=== PATIENT | female | born 1950 | race Caucasian/White ===

== ENCOUNTER → 2016-12-01 | Outpatient (CLI) | payer MEDICARE, OTHER ==
[~2016-12-01] MED LIST: METHACHOLINE KIT (J7674) INH ONE
== END ==
LOC: M CARPUL 07:17
PROVIDERS: ATTEND Internal Medicine Pulmonary Disease
DX: R06.02 Shortness of breath (principal)
CPT/HCPCS: 94070; 95070; J7674

== ENCOUNTER → 2017-08-11 | Outpatient (REF) | payer MEDICARE, OTHER | LOC: M LAB REF 16:41 | PROVIDERS: ATTEND Obstetrics & Gynecology | DX: N39.42 Incontinence without sensory awareness (principal) ==

== ENCOUNTER → 2017-08-30 | Outpatient (REF) | payer MEDICARE, OTHER ==
[2017-08-30 19:55] LABS: CALCIUM OXALATE CRYSTALS SMALL
== END ==
LOC: M LAB REF 16:39
PROVIDERS: ATTEND Obstetrics & Gynecology
DX: N39.0 Urinary tract infection, site not specified (principal)

== ENCOUNTER → 2017-11-29 | Outpatient (REF) | payer MEDICARE, OTHER ==
[2017-11-29 13:33] LABS: APPEARANCE, URINE HAZY (CLEAR); BACTERIA, URINE AUTO 2+ (NEGATIVE); BILIRUBIN, URINE AUTO NEGATIVE (NEGATIVE); BLOOD, URINE BLOOD 1+ (NEGATIVE); COLOR, URINE YELLOW (YELLOW); GLUCOSE, URINE (UA) AUTO NEGATIVE (NEGATIVE); KETONE, URINE AUTO NEGATIVE (NEGATIVE); LEUKOCYTE ESTERASE, URINE AUTO 2+ (NEGATIVE); MUCUS, URINE SMALL (NEGATIVE); NITRITE, URINE AUTO NEGATIVE (NEGATIVE); PROTEIN, URINE AUTO NEGATIVE (NEGATIVE); RBC, URINE AUTO 6 /HPF (0-3); SPECIFIC GRAVITY URINE AUTO 1.017 (1.002-1.035); SQUAMOUS EPITHELIAL CELL UR AU 0 /HPF (0-6); UROBILINOGEN, URINE AUTO 0.2 mg/dL (0.0-2.0); WBC, URINE AUTO 114 /HPF (0-3)
== END ==
LOC: M LAB REF 13:05
DX: N39.42 Incontinence without sensory awareness (principal)
CPT/HCPCS: 81001

== ENCOUNTER 2018-03-31 06:18 | Day surgery (SDC) | payer MEDICARE, OTHER ==
[~2018-03-31 06:18] MED LIST changes: -METHACHOLINE KIT (J7674) INH ONE; +SLF 3 ML SYR IV
[2018-03-31] MEDS: PROPARACAINE 0.5% OPHTH SOL 15ML OD (07:00)
[2018-03-31] MEDS: PHENYLEPHRINE 2.5% OPHTH SOL 2ML OD (07:10)
[2018-03-31] MEDS: TROPICAMIDE 1% OPHTH SOLN 2ML OD (07:15)
[2018-03-31] MEDS: OFLOXACIN 0.3 % (OCUFLOX) OPTH SOL 5ML OD (07:20)
[2018-03-31] MEDS: POVIDONE-IODINE 5% OPHTH PREP SOL 30ML As Ordered (07:54)
[2018-03-31] MEDS: BALANCED SALT IRRIGATION SOLUTION 500ML BAG (FOR OR EYE MACHINE) As Ordered (07:58)
[2018-03-31] MEDS: LIDOCAINE 0.75%/EPINEPHRINE 0.025% IN BSS 1ML SYR INTRACAMERAL (OR ONLY) As Ordered (07:58)
[2018-03-31] MEDS: CEFUROXIME 1MG/0.1ML INTRACAMERAL INJ As Ordered (07:58)
[2018-03-31] MEDS: DUOVISC (0.50ML VISCOAT/0.55ML PROVISC) OPHTH KIT As Ordered (07:58)
[2018-03-31] MEDS ORDERED: fentaNYL 100 MCG/2 ML INJECTION (J3010) As Ordered (08:15)
[2018-03-31] MEDS ORDERED: MIDAZOLAM INJ 2 MG/2 ML VIAL (J2250) As Ordered (08:15)
[2018-03-31] MEDS ORDERED: ONDANSETRON 4MG/2ML VIAL (J2405) As Ordered (09:15)
[2018-03-31] MEDS: ONDANSETRON 4MG/2ML VIAL (J2405) IV (09:25)
== END 2018-03-31 09:50 | disposition home or self-care (01) ==
LOC: M SDC 06:18
DX: H25.11 Age-related nuclear cataract, right eye (principal); I10 Essential (primary) hypertension; R06.02 Shortness of breath; M12.9 Arthropathy, unspecified; J45.909 Unspecified asthma, uncomplicated; C78.01 Secondary malignant neoplasm of right lung; C54.1 Malignant neoplasm of endometrium; Z79.899 Other long term (current) drug therapy; Z79.82 Long term (current) use of aspirin; Z90.710 Acquired absence of both cervix and uterus; Z98.51 Tubal ligation status; Z90.2 Acquired absence of lung [part of]
CPT/HCPCS: 66984

== ENCOUNTER 2018-04-14 05:58 | Day surgery (SDC) | payer MEDICARE, OTHER ==
[2018-04-14] MEDS ORDERED: SLF 3 ML SYR IV ×2 (06:00)
[2018-04-14] MEDS: CEFUROXIME 1MG/0.1ML INTRACAMERAL INJ As Ordered (06:37)
[2018-04-14] MEDS: PROPARACAINE 0.5% OPHTH SOL 15ML OS (06:45)
[2018-04-14] MEDS: OFLOXACIN 0.3 % (OCUFLOX) OPTH SOL 5ML OS (06:45)
[2018-04-14] MEDS: TROPICAMIDE 1% OPHTH SOLN 2ML OS (06:46)
[2018-04-14] MEDS: PHENYLEPHRINE 2.5% OPHTH SOL 2ML OS (06:47)
[2018-04-14] MEDS ORDERED: MIDAZOLAM INJ 2 MG/2 ML VIAL (J2250) As Ordered (06:54)
[2018-04-14] MEDS ORDERED: fentaNYL 100 MCG/2 ML INJECTION (J3010) As Ordered (06:54)
[2018-04-14] MEDS: TETRACAINE 0.5% OPHTH SOLN 4ML As Ordered (07:28)
[2018-04-14] MEDS: POVIDONE-IODINE 5% OPHTH PREP SOL 30ML As Ordered (07:28)
[2018-04-14] MEDS: BALANCED SALT IRRIGATION SOLUTION 500ML BAG (FOR OR EYE MACHINE) As Ordered (07:32)
[2018-04-14] MEDS: LIDOCAINE 0.75%/EPINEPHRINE 0.025% IN BSS 1ML SYR INTRACAMERAL (OR ONLY) As Ordered (07:33)
[2018-04-14] MEDS: DUOVISC (0.50ML VISCOAT/0.55ML PROVISC) OPHTH KIT As Ordered (07:33)
[2018-04-14] MEDS ORDERED: ONDANSETRON 4MG/2ML VIAL (J2405) As Ordered (07:34)
[2018-04-14] MEDS: ACETYLCHOLINE OPHTH SOLN 1% 2ML (MIOCHOL-E) As Ordered (07:45)
== END 2018-04-14 08:31 | disposition home or self-care (01) ==
LOC: M SDC 05:58
DX: H25.12 Age-related nuclear cataract, left eye (principal); I10 Essential (primary) hypertension; R06.02 Shortness of breath; M12.9 Arthropathy, unspecified; Z79.899 Other long term (current) drug therapy; Z79.82 Long term (current) use of aspirin; Z90.710 Acquired absence of both cervix and uterus; Z85.44 Personal history of malignant neoplasm of other female genital organs; Z85.118 Personal history of other malignant neoplasm of bronchus and lung; Z98.51 Tubal ligation status
CPT/HCPCS: 66984

== ENCOUNTER 2019-08-13 02:13 | Inpatient (IN) | payer MEDICARE, OTHER ==
[~2019-08-13] VITALS: Ht 157.5 cm; Wt 86.9 kg
[~2019-08-13 02:13] MED LIST changes: +AROMASIN; +ASPI81TA26 PO; +ATEN50TA2 PO; +BREO1INH3 INH; +CALC500T49 PO; +ENAL20TA PO; +HYDR25TAB PO; +LORA-243 PO; +MEGA625S PO; +MULT1TAB10 PO; -SLF 3 ML SYR IV; +VENTAER INH
[2019-08-13] MEDS ORDERED: PERCOCET 5MG/325MG TAB PO PRN (02:30)
[2019-08-13] MEDS ORDERED: ACETAMINOPHEN TAB 650MG DOSE (2X325MG) PO PRN (02:30)
[2019-08-13] MEDS ORDERED: VITMTA PO (02:59)
[2019-08-13] MEDS ORDERED: MEGE40TA PO (02:59)
[2019-08-13] MEDS ORDERED: AROM25TA PO (02:59)
[2019-08-13] MEDS ORDERED: OYST1TAB PO (02:59)
[2019-08-13] MEDS ORDERED: POTA8CAP10 PO (02:59)
[2019-08-13 07:52] LABS: HEMATOCRIT 39.4 % (36.0-47.0); MEAN CORPUSCULAR HEMOGLOBIN 30.4 pg (27.0-33.0); MEAN CORPUSCULAR VOLUME 92.1 fl (80.0-96.0); PLATELET COUNT, AUTOMATED 219 10^3/uL (150-450); RED BLOOD COUNT 4.28 10^6/uL (4.00-5.40); WHITE BLOOD COUNT 9.8 10^3/uL (4.0-10.0)
[2019-08-13 08:23] LABS: CALCIUM LEVEL 10.1 MG/DL (8.8-10.2); CREATININE FOR GFR 0.99 MG/DL (0.55-1.30); GLOMERULAR FILTRATION RATE 58.9 (>39); POTASSIUM SERUM 3.7 MEQ/L (3.5-5.1)
[2019-08-13] MEDS ORDERED: CEFT1INJ5 IV (08:24)
[2019-08-13] MEDS ORDERED: POTA1TAB14 PO (08:24)
[2019-08-13] MEDS ORDERED: [UNRECOGNIZED DRUG - CODE] IV (08:24)
[2019-08-13] MEDS ORDERED: MORP1INJ IV (08:24)
[2019-08-13] MEDS ORDERED: CEFTINJ IV (08:24)
[2019-08-13] MEDS ORDERED: [UNRECOGNIZED DRUG - CODE] IV (08:28)
[2019-08-13] MEDS: TAMSULOSIN 0.4 MG CAP PO SCH (09:51)
[2019-08-13] MEDS ORDERED: MORPHINE 4 MG/ML 1ML VIAL/SYRINGE (J2270) IV PRN (10:45)
[2019-08-13] MEDS ORDERED: KETOROLAC 30 MG/ML VIAL (J1885) IV PRN (10:45)
--- NOTE | 2019-08-13 11:53 | HPEPDOC ---
[facility] Medical History & Physical Date of Admission Aug 13, 2019 Date of Service: Aug 13, 2019 Attending Physician: RASHAAD BATES MD History and Physical CHIEF COMPLAINT: Right Flank pain HISTORY OF PRESENT ILLNESS: 69-year-old female with past medical history of asthma, uterine cancer with lung metastases, COPD, hypertension, is transferred to [facility] for renal calculi. Patient reports right flank pain since , radiating down to her groin area, with associated pain and burning with urination; she denies any fever. She has had multiple renal calculi in the past, reports are calcium stones, unsure of etiology; she has never been evaluated by nephrology. Upon reviewing records from the other facility. Patient has a 4.5 mm calculi in the right distal ureter, with mild hydroureter. She reports pain is much better controlled after receiving morphine overnight, curre ntly resting comfortable with mild pain intermittently. She denies any shortness of breath, chest pain, cough, nausea, vomiting, abdominal pain or diarrhea. 10 point review of system was negative except for above PAST MEDICAL HISTORY: 1. Asthma/COPD. 2. Hypertension. 3., Uterine cancer with lung metastases. PAST SURGICAL HISTORY: 1. Hysterectomy. 2. Right upper lobectomy. 3., Appendectomy. SOCIAL HISTORY: Never smoker. Denies alcohol use. Denies drug use FAMILY HISTORY: Strong family history of heart disease ALLERGIES: Please see below. HOME MEDICATIONS: Please see below. PHYSICAL EXAMINATION: VITAL SIGNS: Please see below. GENERAL: No distress HEENT: Normocephalic, atraumatic, moist mucous membranes NECK: Supple CARDIOVASCULAR EXAMINATION: S1, S2, no murmurs RESPIRATORY EXAMINATION: Clear to auscultation, no wheezing ABDOMINAL EXAMINATION: Soft, mild suprapubic tenderness, nondistended, positive bowel sounds EXTREMITIES: Range of motion intact SKIN: No rash NEUROLOGICAL EXAMINATION: Alert and oriented 3, no focal deficits PSYCHIATRIC EXAMINATION: Calm and cooperative LABORATORY DATA: See below. IMAGING: CT from the facility reviewed, 4.5 mm stone in the right distal ureter, mild hydroureter. MICROBIOLOGY: Please see below. ASSESSMENT: 69-year-old female with past medical history of uterine cancer with lung metastases, asthma, hypertension, admitted for right distal ureter calculi with mild hydroureter.. . PLAN: 1. Renal calculi. 4.5 mm, right distal ureter, mild hydroureter, history of recurrent renal calculi IV fluids, pain control with NSAIDs/opioids, Flomax, strain the urine for stone. Given the size of the stone unlikely to require active stone retrieval, will monitor for now, no need for urology evaluation at this time, will consider if needed in the future. 2. UTI. UA positive and symptoms concerning for UTI. Ceftriaxone 1 g daily. Urine cultures pending. Blood cultures pending. 3. Hypertension. Continue home atenolol and enalapril. 4. Asthma/COPD Continue home Breo Ellipta 5. Uterine cancer. Continue home Aromasin DVT prophylaxis: Heparin subcutaneous GI prophylaxis: Not needed Laboratory Data Labs 24H Laboratory Tests 2 08/13/19 07:35: Nucleated Red Blood Cells % (auto) 0.0, Anion Gap 6L, Glomerular Filtration Rate 58.9, Uric Acid 4.0, Calcium Level 10.1 08/13/19 11:32: Whole Blood Ionized Calcium 5.2 CBC/BMP Laboratory Tests 08/13/19 07:35 Home Medications Scheduled Albuterol Sulfate (Ventolin Hfa) 108 Mcg/Act Aer, 108 MCG INH PRN Atenolol (Atenolol) 50 Mg Tab, 50 MG PO BID Ceftriaxone in Is-Osm Dextrose (Ceftriaxone 1 gm Piggyback) 1 Gm/50 Ml Froz.piggy, 1 GM IV DAILY GIVE AT [place] Enalapril Maleate (Enalapril Maleate) 20 Mg Tab, 20 MG PO DAILY Exemestane (Aromasin) 25 Mg Tablet, 25 MG PO DAILY Fluticasone/Vilanterol (Breo Ellipta 200-25 Mcg INH) 1 Inh Inh, 1 PUFF INH DAILY Loratadine (Loratadine) 10 Mg Tab, 10 MG PO DAILY Megestrol Acetate (Megestrol Acetate) 40 Mg Tablet, 80 MG PO DAILY Multivitamins (Thera M Plus Tablet) 1 Each Tablet, 1 TAB PO DAILY Potassium Chloride (Potassium Chloride) 8 Meq Capsule.er, 8 MEQ PO BID Potassium Chloride (Potassium Chloride) 20 Meq Tablet.er, 40 MEQ PO DAILY GIVEN AT [place] Sodium Chloride (Sodium Chloride) 500 Ml Iv.soln, 0.9 % IV DAILY BOLUS. GIVEN AT [place] Scheduled PRN Morphine Sulfate/0.9% NaCl/Pf (Morphine 4 mg/ml-0.9% NaCl Syr) 4 Mg/1 Ml Syringe, 1 INJ IV DAILY [facility] ORDER Allergies Coded Allergies: No Known Allergies (Verified , 03/17/18) A-FIB/CHADSVASC A-FIB History Current/History of A-Fib/PAF?: No RASHAAD BATES MD Aug 13, 2019 11:53
[2019-08-13] MEDS ORDERED: cefTRIAXone SOD 1 GM in D5W MINI-BAG PLUS 50 ML IV SCH (12:00)
[2019-08-13] MEDS: NS 1,000 ML IV SCH ×2 (12:08→21:03)
[2019-08-13] MEDS: MULTIVITAMINS/MINERALS THERAP 1 TAB PO SCH (12:15)
[2019-08-13] MEDS: LORATADINE 10 MG TAB PO SCH (12:15)
[2019-08-13] MEDS: ENALAPRIL MALEATE 10 MG TAB PO SCH (12:15)
[2019-08-13 12:24] VITALS: BP 165/80
[2019-08-13 14:00] VITALS: BP 172/64
[2019-08-13] MEDS: MEGESTROL 40 MG TAB PO SCH (14:15)
[2019-08-13] MEDS: HEPARIN SOD (PORCINE) 5000 UNITS/ML VIAL SC SCH ×2 (14:15→21:03)
[2019-08-13] MEDS: ATENOLOL 50 MG TAB PO SCH (21:03)
[2019-08-13 22:00] VITALS: BP 160/67
[2019-08-14] MEDS: HEPARIN SOD (PORCINE) 5000 UNITS/ML VIAL SC SCH (05:45)
[2019-08-14] MEDS: NS 1,000 ML IV SCH (05:46)
[2019-08-14 05:58] LABS: HEMATOCRIT 35.2 % (36.0-47.0); HEMOGLOBIN 11.8 g/dl (12.0-15.5); MEAN CORPUSCULAR HEMOGLOBIN 31.4 pg (27.0-33.0); MEAN CORPUSCULAR HGB CONC 33.5 g/dl (32.0-36.5); MEAN CORPUSCULAR VOLUME 93.6 fl (80.0-96.0); PLATELET COUNT, AUTOMATED 206 10^3/uL (150-450); RED BLOOD COUNT 3.76 10^6/uL (4.00-5.40); WHITE BLOOD COUNT 5.5 10^3/uL (4.0-10.0)
[2019-08-14 06:00] VITALS: BP 144/84
[2019-08-14 06:24] LABS: ALBUMIN 2.4 GM/DL (3.2-5.2); ALT/SGPT 28 U/L (12-78); BILIRUBIN,TOTAL 0.5 MG/DL (0.2-1.0); BLOOD UREA NITROGEN 16 MG/DL (7-18); CALCIUM LEVEL 9.7 MG/DL (8.8-10.2); CARBON DIOXIDE LEVEL 24 MEQ/L (21-32); CHLORIDE LEVEL 115 MEQ/L (98-107); CREATININE FOR GFR 0.82 MG/DL (0.55-1.30); GLOMERULAR FILTRATION RATE > 60.0 (>39); GLUCOSE, FASTING 91 MG/DL (70-100); MAGNESIUM LEVEL 1.7 MG/DL (1.8-2.4); POTASSIUM SERUM 3.4 MEQ/L (3.5-5.1); SODIUM LEVEL 144 MEQ/L (136-145); TOTAL PROTEIN 5.9 GM/DL (6.4-8.2)
[2019-08-14] MEDS ORDERED: MAGNESIUM OXIDE 400 MG TAB (MAG-OX) PO ONE (08:30)
[2019-08-14] MEDS ORDERED: POTASSIUM CHLORIDE 10 MEQ SR TABLET PO ONE (08:30)
[2019-08-14] MEDS: MEGESTROL 40 MG TAB PO SCH (08:46)
[2019-08-14] MEDS: MULTIVITAMINS/MINERALS THERAP 1 TAB PO SCH (08:46)
[2019-08-14] MEDS: ATENOLOL 50 MG TAB PO SCH (08:48)
[2019-08-14 08:49] VITALS: BP 139/65
[2019-08-14] MEDS: TAMSULOSIN 0.4 MG CAP PO SCH (08:49)
[2019-08-14] MEDS: ENALAPRIL MALEATE 10 MG TAB PO SCH (08:49)
[2019-08-14] MEDS: LORATADINE 10 MG TAB PO SCH (08:49)
[2019-08-14] MEDS ORDERED: FLUBLOK(EGG FREE)(QUAD)INFLUENZA VACC 0.5ML SYRINGE (90682)18YRS&OLDER IM ONE (09:00)
[2019-08-14] MEDS ORDERED: BREO ELLIPTA 200/25 (PATIENT'S OWN MED) INH SCH (09:00)
[2019-08-14] MEDS ORDERED: CIPR-250 PO (10:46)
--- NOTE | 2019-08-14 10:51 | DS.PDOC ---
Discharge Summary General Date of Admission Aug 13, 2019 at 02:22 Date of Discharge Over 2018 Attending Physician: RASHAAD BATES MD Discharge Summary PROCEDURES PERFORMED DURING STAY: None. ADMITTING DIAGNOSES: 1. Renal calculi, UTI. DISCHARGE DIAGNOSES: 1. Renal calculi, UTI. COMPLICATIONS/CHIEF COMPLAINT: UTI. HISTORY OF PRESENT ILLNESS: 69-year-old female resented from [place] renal calculi and UTI, records from the other facility indicating a 4.5 mm stone in the right distal ureter and urine cultures growing sensitive Klebsiella. Patient has been doing well since admission, not requiring any pain control for the past 24 hours, currently resting in bed without any complaints at this time, mild tenderness to palpation of right flank, tolerating diet, urinating well, have been straining her urine for stone but no stone has been found so far. Patient is hemodynamically stable for discharge, can be safely discharged, given the size of stones and patient's complete lack of symptoms at this time. Patient advised to call PCP or return to emergency room if develops fever, worsening flank pain, vomiting or diarrhea along with urinary symptoms/abdominal pain. Patient will be discharged on ciprofloxacin for 5 days for her UTI; patient understands and agrees with discharge planning. HOSPITAL COURSE: As above. DISCHARGE MEDICATIONS: Please see below. ALLERGIES: Please see below. PHYSICAL EXAMINATION: VITAL SIGNS: Please see below. GENERAL: No distress HEENT: Normocephalic, atraumatic, moist mucous membranes NECK: Supple CARDIOVASCULAR EXAMINATION: S1, S2, no murmurs RESPIRATORY EXAMINATION: Clear to auscultation, no wheezing ABDOMINAL EXAMINATION: Soft, mild right flank tenderness to palpation, nondistended, positive bowel sounds EXTREMITIES: Range of motion intact SKIN: No rash NEUROLOGICAL EXAMINATION: Alert and oriented 3, no focal deficits PSYCHIATRIC EXAMINATION: Calm and cooperative LABORATORY DATA: Please see below. IMAGING: CT scan showing 4.5 mm stone in the right distal ureter PROGNOSIS: Good ACTIVITY: As tolerated. DIET: Regular DISCHARGE PLAN: Follow with PCP in 1-2 weeks DISPOSITION: Home. DISCHARGE INSTRUCTIONS: 1. Above. DISCHARGE CONDITION: Stable. TIME SPENT ON DISCHARGE: Greater than 35 minutes. Vital Signs/I&Os Vital Signs Date Time Temp Pulse Resp B/P (MAP) Pulse Ox O2 Delivery O2 Flow Rate FiO2 08/14/19 08:49 139/65 08/14/19 08:48 73 08/14/19 06:00 98.4 18 99 08/13/19 22:00 Room Air I&O- Last 24 Hours up to 6 AM 08/14/19 06:00 Intake Total 3220 ml Output Total 1900 ml Balance 1320 ml Laboratory Data Labs 24H Laboratory Tests 2 08/13/19 11:32: Whole Blood Ionized Calcium 5.2 08/14/19 05:28: Nucleated Red Blood Cells % (auto) 0.0, Anion Gap 5L, Glomerular Filtration Rate > 60.0, Calcium Level 9.7, Magnesium Level 1.7L, Total Bilirubin 0.5, Aspartate Amino Transf (AST/SGOT) 14, Alanine Aminotransferase (ALT/SGPT) 28, Alkaline Phosphatase 96, Total Protein 5.9L, Albumin 2.4L, Albumin/Globulin Ratio 0.69L CBC/BMP Laboratory Tests 08/14/19 05:28 Microbiology Microbiology 08/13/19 Blood Culture, Received Pending Discharge Medications Scheduled Albuterol Sulfate (Ventolin Hfa) 108 Mcg/Act Aer, 108 MCG INH PRN, (Reported) Atenolol (Atenolol) 50 Mg Tab, 50 MG PO BID, (Reported) Ciprofloxacin HCl (Cipro) 250 Mg Tablet, 250 MG PO BID Enalapril Maleate (Enalapril Maleate) 20 Mg Tab, 20 MG PO DAILY, (Reported) Exemestane (Aromasin) 25 Mg Tablet, 25 MG PO DAILY, (Reported) Fluticasone/Vilanterol (Breo Ellipta 200-25 Mcg INH) 1 Inh Inh, 1 PUFF INH DAILY, (Reported) Loratadine (Loratadine) 10 Mg Tab, 10 MG PO DAILY, (Reported) Megestrol Acetate (Megestrol Acetate) 40 Mg Tablet, 80 MG PO DAILY, (Reported) Multivitamins (Thera M Plus Tablet) 1 Each Tablet, 1 TAB PO DAILY, (Reported) Potassium Chloride (Potassium Chloride) 8 Meq Capsule.er, 8 MEQ PO BID, (Reported) Allergies Coded Allergies: No Known Allergies (Verified , 03/17/18) RASHAAD BATES MD Aug 14, 2019 10:51
== END 2019-08-14 14:00 | disposition home or self-care (01) | DRG 690 ==
LOC: OBSVTOIN 02:22 → M ED INP 02:22 → M MS5PR 07:15 → M MSPAV 11:50
PROVIDERS: ADMIT Internal Medicine; ATTEND Internal Medicine
DX: N39.0 Urinary tract infection, site not specified (principal); N20.1 Calculus of ureter; C78.00 Secondary malignant neoplasm of unspecified lung; B96.1 Klebsiella pneumoniae [K. pneumoniae] as the cause of diseases classified elsewhere; Z79.899 Other long term (current) drug therapy; J45.909 Unspecified asthma, uncomplicated; I10 Essential (primary) hypertension; C55 Malignant neoplasm of uterus, part unspecified

== ENCOUNTER 2019-08-27 09:16 | Inpatient (IN) | payer MEDICARE, OTHER ==
[~2019-08-27] VITALS: Ht 160 cm; Wt 87.0 kg
[~2019-08-27 09:16] MED LIST changes: +AROM25TA PO; +CEFT1INJ5 IV; +CEFTINJ IV; +CIPR-250 PO; +MEGE40TA PO; +MORP1INJ IV; +OYST1TAB PO; +POTA1TAB14 PO; +POTA8CAP10 PO; +TAMSULOSIN 0.4 MG CAP PO SCH; +VITMTA PO; +[UNRECOGNIZED DRUG - CODE] IV; +[UNRECOGNIZED DRUG - CODE] IV
[2019-08-27] MEDS ORDERED: POTASSIUM CHLORIDE 10 MEQ SR TABLET PO ONE (13:00)
--- NOTE | 2019-08-27 13:00 | HPEPDOC ---
[facility] Medical History & Physical Date of Admission Aug 27, 2019 Date of Service: Aug 27, 2019 Primary Care Physician: RASHAAD BATES MD History and Physical CHIEF COMPLAINT: Right flank pain HISTORY OF PRESENT ILLNESS: 69-year-old female with past medical history of asthma, endometrial cancer with lung metastases, status post hysterectomy and right upper lobectomy, hypertension and renal calculi is transferred to [facility] today for severe hydronephrosis due to 3 mm calculi in the right ureter. Patient was admitted 2 weeks ago with similar complaints, clinically improved at that time, had mild hydronephrosis, was discharged with the assumption that she would pass the stone on her own. She reports feeling well for the past 2 weeks up until yesterday afternoon when she started having right flank pain, but much worse overnight, went to the ED. CT scan of the abdomen and pelvis in the ED showed persistent 3 mm calculi in the right ureter with severe hydronephrosis. Her urine was also consistent with UTI. She was given Levaquin and transferred to [facility]. Patient seen on the floor, comfortable at this time, continues mild to moderate right flank pain, no additional complaints at this time. She denies any fever, nausea, vomiting, chest pain, or constipation. 10 point review of system was negative except for above PAST MEDICAL HISTORY: 1. Asthma. 2. Endometrial cancer. 3. Lung metastases. 4. Hypertension 5. Renal calculi PAST SURGICAL HISTORY: 1. Hysterectomy. 2. Right upper lobectomy. 3. Cholecystectomy. 4. Appendectomy. 5. Carpal tunnel release SOCIAL HISTORY: Never smoker. Denies alcohol. Denies drug use ALLERGIES: Please see below. HOME MEDICATIONS: Please see below. PHYSICAL EXAMINATION: VITAL SIGNS: Please see below. GENERAL: No distress HEENT: Normocephalic, atraumatic, moist mucous membranes NECK: Supple CARDIOVASCULAR EXAMINATION: S1, S2, no murmurs RESPIRATORY EXAMINATION: Clear to auscultation, no wheezing ABDOMINAL EXAMINATION: Soft, mild to moderate right flank tenderness, nondistended, positive bowel sounds EXTREMITIES: Range of motion intact SKIN: No rash NEUROLOGICAL EXAMINATION: Alert and oriented 3, no focal deficits PSYCHIATRIC EXAMINATION: Calm and cooperative LABORATORY DATA: See below. IMAGING: CT scan from other facility, consistent with 3 mm stone in the right ureter with severe hydronephrosis MICROBIOLOGY: Please see below. ASSESSMENT: 69-year-old female is history of asthma, uterine cancer, hypertension, and renal calculi, presents with persistent stone in the right ureter with severe hydronephrosis. PLAN: 1. Severe Right Hydronephrosis. Secondary to 3 mm calculi in the right ureter, Toradol for pain control, Flomax, IV fluids, will consult urology for possible stent placement. UA concerning for infection, blood cultures pending, ceftriaxone. Nothing by mouth after midnight in anticipation for procedure. 2. Asthma. Stable, continue home meds. 3. Hypertension. Continue home meds with hold parameters. 4. Endometrial cancer with lung metastases. Status post hysterectomy and right upper lobectomy. DVT prophylaxis: Heparin subcutaneous GI prophylaxis: Not needed Home Medications Scheduled Albuterol Sulfate (Ventolin Hfa) 108 Mcg/Act Aer, 108 MCG INH PRN Atenolol (Atenolol) 50 Mg Tab, 50 MG PO BID Ciprofloxacin HCl (Cipro) 250 Mg Tablet, 250 MG PO BID Enalapril Maleate (Enalapril Maleate) 20 Mg Tab, 20 MG PO DAILY Exemestane (Aromasin) 25 Mg Tablet, 25 MG PO DAILY Fluticasone/Vilanterol (Breo Ellipta 200-25 Mcg INH) 1 Inh Inh, 1 PUFF INH DAILY Loratadine (Loratadine) 10 Mg Tab, 10 MG PO DAILY Megestrol Acetate (Megestrol Acetate) 40 Mg Tablet, 80 MG PO DAILY Multivitamins (Thera M Plus Tablet) 1 Each Tablet, 1 TAB PO DAILY Potassium Chloride (Potassium Chloride) 8 Meq Capsule.er, 8 MEQ PO BID Allergies Coded Allergies: No Known Allergies (Verified , 03/17/18) A-FIB/CHADSVASC A-FIB History Current/History of A-Fib/PAF?: No RASHAAD BATES MD Aug 27, 2019 13:00
[2019-08-27] MEDS ORDERED: LEVO1INJ27 IV (13:02)
[2019-08-27] MEDS ORDERED: KETO60IN INJ (13:02)
[2019-08-27] MEDS ORDERED: 5-HT1CAP PO (13:02)
[2019-08-27] MEDS ORDERED: CRAN400C PO (13:02)
[2019-08-27] MEDS ORDERED: ALBUTEROL 90 MCG/ACT 8GM HFA INHALER INH PRN (13:30)
[2019-08-27 13:44] LABS: CALCIUM LEVEL 9.7 MG/DL (8.8-10.2); CREATININE FOR GFR 1.03 MG/DL (0.55-1.30); GLOMERULAR FILTRATION RATE 56.2 (>39); POTASSIUM SERUM 3.9 MEQ/L (3.5-5.1)
[2019-08-27 14:00] VITALS: BP 154/68
[2019-08-27] MEDS: NS 1,000 ML IV SCH ×2 (14:00→22:45)
[2019-08-27] MEDS ORDERED: ACETAMINOPHEN TAB 650MG DOSE (2X325MG) PO PRN (14:30)
[2019-08-27] MEDS: LORATADINE 10 MG TAB PO SCH (15:48)
[2019-08-27] MEDS: cefTRIAXone SOD 1 GM in D5W MINI-BAG PLUS 50 ML IV SCH (15:49)
[2019-08-27] MEDS: MEGESTROL 40 MG TAB PO SCH (15:49)
[2019-08-27] MEDS: KETOROLAC 30 MG/ML VIAL (J1885) IV SCH (19:43)
[2019-08-27] MEDS: ATENOLOL 50 MG TAB PO SCH (20:37)
[2019-08-27] MEDS: HEPARIN SOD (PORCINE) 5000 UNITS/ML VIAL SC SCH (20:37)
[2019-08-27] MEDS: POTASSIUM CHLORIDE 10 MEQ SR TABLET PO SCH (20:37)
[2019-08-27 22:00] VITALS: BP 152/69
[2019-08-28] VITALS (10 sets, daily range): BP systolic 113–157; BP diastolic 52–68
[2019-08-28 06:24] LABS: HEMATOCRIT 38.1 % (36.0-47.0); HEMOGLOBIN 12.6 g/dl (12.0-15.5); MEAN CORPUSCULAR HEMOGLOBIN 30.8 pg (27.0-33.0); MEAN CORPUSCULAR HGB CONC 33.1 g/dl (32.0-36.5); MEAN CORPUSCULAR VOLUME 93.2 fl (80.0-96.0); PLATELET COUNT, AUTOMATED 274 10^3/uL (150-450); RED BLOOD COUNT 4.09 10^6/uL (4.00-5.40); WHITE BLOOD COUNT 13.6 10^3/uL (4.0-10.0)
[2019-08-28 06:52] LABS: ALBUMIN 2.8 GM/DL (3.2-5.2); BILIRUBIN,TOTAL 1.1 MG/DL (0.2-1.0); CALCIUM LEVEL 9.9 MG/DL (8.8-10.2); GLOMERULAR FILTRATION RATE 58.2 (>39); MAGNESIUM LEVEL 1.5 MG/DL (1.8-2.4); PHOSPHORUS LEVEL 2.1 MG/DL (2.5-4.9); POTASSIUM SERUM 4.1 MEQ/L (3.5-5.1); TOTAL PROTEIN 5.5 GM/DL (6.4-8.2)
[2019-08-28] MEDS ORDERED: LIDOCAINE 2% INJ 100 MG/5 ML SDV (FOR ANES.) As Ordered ONE (07:03)
[2019-08-28] MEDS ORDERED: PROPOFOL 200 MG/20 ML VIAL As Ordered ONE (07:03)
[2019-08-28] MEDS ORDERED: CONRAY-60 60% 50ML VIAL (Q9961) As Ordered ONE (07:05)
[2019-08-28] MEDS ORDERED: dexameTHASONE 4 MG/ML 1ML VIAL (J1100) As Ordered ONE (07:05)
[2019-08-28] MEDS ORDERED: ONDANSETRON 4MG/2ML VIAL (J2405) As Ordered ONE ×2 (07:05→08:42)
[2019-08-28] MEDS ORDERED: fentaNYL 100 MCG/2 ML INJECTION (J3010) As Ordered ONE (07:12)
[2019-08-28] MEDS ORDERED: LevoFLOXacin(LEVAQUIN)500 MG/100 ML BAG (J1956) As Ordered ONE (07:27)
--- NOTE | 2019-08-28 07:33 | SMCUROLCON ---
Urology Consultation General Date of Consultation 08/28/19 Reason For Consultation This patient is seen for Right Obstructive Ureteral Calculi. History of Present Illness This is a 69 y/o F w/ a PMH significant for HTN, asthma, and endometrial cancer w/ lung mets, transferred from [facility] for an obstructing right ureteral stone and likely UTI. The patient was originally seen in the ER 2 wks ago for an obst ructing 3mm distal right ureteral stone. She was discharged home and notes her pain was controlled up until Wednesday, when the pain recurred. It was associated w/ nausea and vomiting. She also notes having fevers. A repeat CT done at [facility] showed the stone to be in the same location but w/ worsened hydro and perinephric stranding. Since transfer here, she notes that she feels a little bit better. She has never had kidney stone surgery before. She denies dysuria. Past Medical History Medical History see HPI Surgical Hstory hysterectomy, cholecystectomy, appendectomy Medications Current Medications Current Medications Medications (Trade) Dose Ordered Sig/Qian Route PRN Reason Start Time Stop Time Status Last Admin Dose Admin Acetaminophen (Tylenol Tab) 650 mg Q6HP PRN PO PAIN / FEVER 08/27/19 14:30 08/27/19 14:51 Albuterol Sulfate (Proventil, Ventolin Hfa) 2 puff QID PRN INH SHORTNESS OF BREATH 08/27/19 13:30 Atenolol (Tenormin) 50 mg BID PO 08/27/19 21:00 08/27/19 20:37 Ceftriaxone Sodium 1 gm/ Dextrose 50 ml @ 100 mls/hr Q24H IV 08/27/19 15:00 08/27/19 15:49 Enalapril Maleate (Vasotec) 20 mg DAILY PO 08/28/19 09:00 Heparin Sodium (Porcine) (Heparin) 5,000 units Q12H SC 08/27/19 21:00 08/27/19 20:37 Home Med (Med Rec Complete!) ASDIRECTED XX 08/27/19 13:15 08/27/19 13:04 DC Ketorolac Tromethamine (ToRADol) 15 mg Q8HP IV 08/27/19 17:00 09/01/19 16:59 08/27/19 19:43 Loratadine (Claritin) 10 mg DAILY PO 08/27/19 09:00 08/27/19 15:48 Megestrol Acetate (Megace) 80 mg DAILY PO 08/27/19 09:00 08/27/19 15:49 Miscellaneous (Unresolved Patient Own Med Order) SEE LABEL COMMENTS DAILY XX 08/27/19 09:00 Patient Own Medication (Patient'S Own Med) AROMASIN 25MG DAILY PO 08/28/19 09:00 UNV Patient Own Medication (Patient'S Own Med) Breo Ellipta 200-25... DAILY INH 08/28/19 09:00 UNV Potassium Chloride (Micro-K Extencaps) 10 meq BID PO 08/27/19 21:00 08/27/19 20:37 Sodium Chloride 1,000 ml @ 100 mls/hr Q10H IV 08/27/19 12:45 08/27/19 22:45 Tamsulosin HCl (Flomax) 0.4 mg DAILY PO 08/27/19 09:00 08/27/19 15:48 Allergies Allergies: Coded Allergies: No Known Allergies (Verified , 03/17/18) Review of Systems Constitutional: Reports: Fever, Chills Skin: Denies: Rash, Lesions, Breakdown, Nail Changes Pulmonary: Denies: Dyspnea, Cough Cardiovascular: Denies Chest Pain, Denies Palpitations Gastrointestinal: Reports: Nausea, Vomiting Genitourinary: Denies: Dysuria, Frequency Musculoskeletal: Reports: Back Pain (right flank pain) Psych: Reports: Mood Normal Physical Examination General Exam: Alert, Cooperative, No Acute Distress Chest Exam: Clear to auscultation Heart Exam: Rate Normal, Regular Rhythm Abdomen Exam: Soft, Tenderness (mild RLQ) Skin Exam: Nl turgor and temperature Neuro Exam: Normal Speech Psych Exam: Mental status NL, Mood NL Vital Signs/I&O Vital Signs Date Time Temp Pulse Resp B/P (MAP) Pulse Ox O2 Delivery O2 Flow Rate FiO2 08/28/19 06:00 99.3 90 20 153/68 (96) 94 Room Air I&O- Last 24 Hours up to 6 AM 08/28/19 06:00 Intake Total 1670 ml Output Total 2100 ml Balance -430 ml Laboratory Data 24H Labs Laboratory Tests 2 08/27/19 13:10: Anion Gap 7L, Glomerular Filtration Rate 56.2, Calcium Level 9.7 08/27/19 14:08: Urine Color YELLOW, Urine Appearance TURBIDH, Urine pH 5.0, Urine Specific [place] 1.014, Urine Protein 3+H, Urine Glucose (UA) NEGATIVE, Urine Ketones NEGATIVE, Urine Blood 2+H, Urine Nitrite NEGATIVE, Urine Bilirubin NEGATIVE, Urine Urobilinogen 0.2, Urine Leukocyte Esterase 3+H, Urine WBC (Auto) TNTCH, Urine RBC (Auto) TNTCH, Urine Hyaline Casts (Auto) 0, Urine Bacteria (Auto) 1+H, Urine Squamous Epithelial Cells 0, Urine Transitional Epithelial Cells 1, Urine Sperm (Auto) 08/28/19 05:59: Anion Gap 7L, Glomerular Filtration Rate 58.2, Calcium Level 9.9, Nucleated Red Blood Cells % (auto) 0.0, Phosphorus Level 2.1L, Magnesium Level 1.5L, Total Bilirubin 1.1H, Aspartate Amino Transf (AST/SGOT) 12, Alanine Aminotransferase (ALT/SGPT) 25, Alkaline Phosphatase 118H, Total Protein 5.5L, Albumin 2.8L, Albumin/Globulin Ratio 1.04 CBC/BMP Laboratory Tests 08/27/19 13:10 08/28/19 05:59 Microbiology Microbiology 08/27/19 Urine Culture, Received Pending 08/27/19 Blood Culture, Received Pending Assessment This is a 69 y/o F w/ an obstructing 3mm distal right ureteral stone and UA concerning for UTI. She received a dose of rocephin yesterday afternoon. I recommended that we take her to the OR today for cystoscopy, right ureteroscopy w/ laser lithotripsy, and right ureteral stent placement. After a discussion of the risks and benefits, informed consent was signed. Plan - NPO - to OR now - levaquin 500mg IV OCOR - may resume regular diet postop and assuming she improves clinically, may be discharged home tomorrow on culture specific PO x JESSICA SANDOVAL MD Aug 28, 2019 07:33
[2019-08-28] MEDS ORDERED: LevoFLOXacin IV 500 MG in IV 1 EA IV ONE (07:45)
[2019-08-28] MEDS ORDERED: ALBUTEROL 6.7GM INHALER **FOR ANES. CART/OMNICELL ONLY As Ordered ONE (07:56)
[2019-08-28] MEDS ORDERED: METOCLOPRAMIDE INJ 10MG/2ML VIAL (J2765) IV PRN (08:00)
[2019-08-28] MEDS ORDERED: LR 1,000 ML IV SCH (08:00)
[2019-08-28] MEDS ORDERED: PERCOCET 5MG/325MG TAB PO PRN (08:00)
[2019-08-28] MEDS ORDERED: fentaNYL 100 MCG/2 ML INJECTION (J3010) IV PRN (08:00)
[2019-08-28] MEDS ORDERED: KETOROLAC 30 MG/ML VIAL (J1885) IV PRN (08:00)
[2019-08-28] MEDS ORDERED: ONDANSETRON 4MG/2ML VIAL (J2405) IV PRN (08:00)
--- NOTE | 2019-08-28 08:31 | REP ---
Retrograde pyelogram: Three views. History: Cystoscopy, stent. 20 seconds of fluoroscopy time is reported. Findings: A sequence of three last image hold fluoroscopically obtained spot radiographs of the right abdomen document right ureteral cannulation, contrast injection, and stent placement. Electronically Signed by Nate Doran MD 08/28/2019 09:14 A
--- NOTE | 2019-08-28 08:32 | RO ---
DATE OF PROCEDURE: 08/28/2019 PREPROCEDURE DIAGNOSIS: Right ureteral stone. POSTPROCEDURE DIAGNOSIS: Right ureteral stone. PROCEDURE: Cystoscopy, right ureteroscopy with basket extraction of stone, right retrograde pyelogram with intraoperative interpretation of images, right ureteral stent placement. SURGEON: Prakash Noel MD ENVELOPE MACHINE ADJUSTER: None. ANESTHESIA: General. OPERATIVE INDICATIONS: This is a 69-year-old female, who was originally found to have an obstructing 3 mm distal right ureteral stone approximately 2 weeks ago. Her pain recurred a few days ago and a repeat CAT again showed the stone to still be obstructing with worsened hydronephrosis. Also, her urinalysis was concerning for possible infection. It was recommended she be brought to the operating room today for above listed procedure. DESCRIPTION OF PROCEDURE: The patient was brought to the operating room and general anesthesia was induced. Prophylactic antibiotics were infused. She was then placed in a dorsal lithotomy position and prepped and draped in the usual sterile fashion. A rigid cystoscope was inserted into the urethral meatus and advanced into the bladder. A guidewire was advanced up the right collecting system. I then went up the right collecting system with a short semi-rigid ureteroscope, and of note, the patient had moderate edema in the distal ureter. I was able to get through the edema and found the stone. The stone was then grasped with a basket and withdrawn intact. After the stone was removed, a retrograde pyelogram was performed. It was notable for moderate right hydroureteronephrosis with no extravasation. I then withdrew the ureteroscope and utilized a wire to advance a 6 [place] x 22-32 cm JJ ureteral stent up into the right collecting system. The wire was removed and there were adequate curls of the stent in the right renal pelvis and in the bladder. The bladder was emptied of all fluid. This marked the conclusion of procedure. The patient was then taken out of dorsal lithotomy position, awakened from anesthesia and transported to recovery room in stable condition. ESTIMATED BLOOD LOSS: 5 mL. COMPLICATIONS: None. SPECIMENS: Kidney stone. PLAN: The patient will be kept in-house probably at least until tomorrow to see if she improves clinically. She will ultimately be discharged home with a plan for her to followup in our clinic in a few weeks for stent removal. NACHO
[2019-08-28] MEDS ORDERED: AROMASIN PO SCH (09:00)
[2019-08-28] MEDS ORDERED: BREO ELLIPTA INH SCH (09:00)
[2019-08-28] MEDS: ENALAPRIL MALEATE 10 MG TAB PO SCH (09:41)
[2019-08-28] MEDS: NS 1,000 ML IV SCH (09:41)
[2019-08-28] MEDS: MEGESTROL 40 MG TAB PO SCH (09:42)
[2019-08-28] MEDS: POTASSIUM CHLORIDE 10 MEQ SR TABLET PO SCH ×2 (09:42→20:22)
[2019-08-28] MEDS: LORATADINE 10 MG TAB PO SCH (09:42)
[2019-08-28] MEDS: K-PHOS NEUTRAL 250MG TABLET (SOD.PHOSPHATE/POT.PHOSPHATE) PO SCH ×3 (09:42→16:43)
[2019-08-28] MEDS: ATENOLOL 50 MG TAB PO SCH ×2 (09:42→20:25)
[2019-08-28] MEDS: KETOROLAC 30 MG/ML VIAL (J1885) IV SCH ×2 (09:43→16:43)
[2019-08-28] MEDS: HEPARIN SOD (PORCINE) 5000 UNITS/ML VIAL SC SCH ×2 (09:44→20:22)
[2019-08-28] MEDS: MAG SULF 1GM/100ML (MAG RUN) 1 GM in IV 1 EA IV SCH ×2 (09:52→11:35)
[2019-08-28] MEDS: cefTRIAXone SOD 1 GM in D5W MINI-BAG PLUS 50 ML IV SCH (13:43)
--- NOTE | 2019-08-28 13:45 | IPNPDOC ---
Date Seen The patient was seen on 08/28/19. Progress Note HISTORY OF PRESENT ILLNESS: 69-year-old female with past medical history of asthma, endometrial cancer with lung metastases, status post hysterectomy and right upper lobectomy, hypertension and renal calculi is transferred to [facility] today for severe hydronephrosis due to 3 mm calculi in the right ureter. Patient was admitted 2 weeks ago with similar complaints, clinically improved at that time, had mild hydronephrosis, was discharged with the assumption that she would pass the stone on her own. She reports feeling well for the past 2 weeks up until yesterday afternoon when she started having right flank pain, but much worse overnight, went to the ED. CT scan of the abd omen and pelvis in the ED showed persistent 3 mm calculi in the right ureter with severe hydronephrosis. Her urine was also consistent with UTI. She was given Levaquin and transferred to [facility]. Patient seen on the floor, comfortable at this time, continues mild to moderate right flank pain, no additional complaints at this time. She denies any fever, nausea, vomiting, chest pain, or constipation. 08/28/19 Underwent lithotripsy and stent placement this morning, seen postop in her room. She is eating breakfast, reports minimal abdominal pain, no other issues at this time. She denies any shortness of breath, nausea, vomiting, chest pain or diarrhea. 10 point review of system was negative except for above ALLERGIES: Please see below. HOME MEDICATIONS: Please see below. PHYSICAL EXAMINATION: VITAL SIGNS: Please see below. GENERAL: No distress HEENT: Normocephalic, atraumatic, moist mucous membranes NECK: Supple CARDIOVASCULAR EXAMINATION: S1, S2, no murmurs RESPIRATORY EXAMINATION: Clear to auscultation, no wheezing ABDOMINAL EXAMINATION: Soft, mild tenderness to palpation, nondistended, positive bowel sounds EXTREMITIES: Range of motion intact SKIN: No rash NEUROLOGICAL EXAMINATION: Alert and oriented 3, no focal deficits PSYCHIATRIC EXAMINATION: Calm and cooperative LABORATORY DATA: See below. IMAGING: CT scan from other facility, consistent with 3 mm stone in the right ureter with severe hydronephrosis MICROBIOLOGY: Please see below. ASSESSMENT: 69-year-old female is history of asthma, uterine cancer, hypertension, and renal calculi, presents with persistent stone in the right ureter with severe hydronephrosis. PLAN: 1. Severe Right Hydronephrosis. Secondary to 3 mm calculi in the right ureter, status post lithotripsy and stent placement today, continue antibiotics for UTI/pyelonephritis, cultures pending, likely discharge tomorrow on oral antibiotics after sensitivities have returned. 2. Asthma. Stable, continue home meds. 3. Hypertension. Continue home meds with hold parameters. 4. Endometrial cancer with lung metastases. Status post hysterectomy and right upper lobectomy. DVT prophylaxis: Heparin subcutaneous GI prophylaxis: Not needed VS, I&O, 24H, Fishbone Vital Signs/I&O Vital Signs Date Time Temp Pulse Resp B/P (MAP) Pulse Ox O2 Delivery O2 Flow Rate FiO2 08/28/19 12:33 97.8 78 16 118/61 (80) 96 Room Air 08/28/19 08:25 2 I&O- Last 24 Hours up to 6 AM 08/28/19 06:00 Intake Total 1670 ml Output Total 2100 ml Balance -430 ml Laboratory Data 24H LABS Laboratory Tests 2 08/27/19 14:08: Urine Color YELLOW, Urine Appearance TURBIDH, Urine pH 5.0, Urine Specific [place] 1.014, Urine Protein 3+H, Urine Glucose (UA) NEGATIVE, Urine Ketones NEGATIVE, Urine Blood 2+H, Urine Nitrite NEGATIVE, Urine Bilirubin NEGATIVE, Urine Urobilinogen 0.2, Urine Leukocyte Esterase 3+H, Urine WBC (Auto) TNTCH, Urine RBC (Auto) TNTCH, Urine Hyaline Casts (Auto) 0, Urine Bacteria (Auto) 1+H, Urine Squamous Epithelial Cells 0, Urine Transitional Epithelial Cells 1, Urine Sperm (Auto) 08/28/19 05:59: Nucleated Red Blood Cells % (auto) 0.0, Anion Gap 7L, Glomerular Filtration Rate 58.2, Calcium Level 9.9, Phosphorus Level 2.1L, Magnesium Level 1.5L, Total Bilirubin 1.1H, Aspartate Amino Transf (AST/SGOT) 12, Alanine Aminotransferase (ALT/SGPT) 25, Alkaline Phosphatase 118H, Total Protein 5.5L, Albumin 2.8L, Albumin/Globulin Ratio 1.04 08/28/19 08:03: CBC/BMP Laboratory Tests 08/28/19 05:59 Microbiology Microbiology 08/27/19 Urine Culture - Final, Complete 08/27/19 Blood Culture - Preliminary, Resulted No growth after 24 hours . All specim... GONDAL,KHUBAIB N. MD Aug 28, 2019 13:45
[2019-08-29] MEDS: NS 1,000 ML IV SCH (03:35)
[2019-08-29 06:34] VITALS: BP 155/65
[2019-08-29 07:01] LABS: HEMATOCRIT 34.6 % (36.0-47.0); HEMOGLOBIN 11.2 g/dl (12.0-15.5); MEAN CORPUSCULAR HGB CONC 32.4 g/dl (32.0-36.5); MEAN CORPUSCULAR VOLUME 92.8 fl (80.0-96.0); PLATELET COUNT, AUTOMATED 260 10^3/uL (150-450); RED BLOOD COUNT 3.73 10^6/uL (4.00-5.40); WHITE BLOOD COUNT 11.5 10^3/uL (4.0-10.0)
[2019-08-29 07:33] LABS: BLOOD UREA NITROGEN 18 MG/DL (7-18); CALCIUM LEVEL 9.4 MG/DL (8.8-10.2); CARBON DIOXIDE LEVEL 23 MEQ/L (21-32); CHLORIDE LEVEL 115 MEQ/L (98-107); CREATININE FOR GFR 0.87 MG/DL (0.55-1.30); GLOMERULAR FILTRATION RATE > 60.0 (>39); GLUCOSE, FASTING 111 MG/DL (70-100); MAGNESIUM LEVEL 1.9 MG/DL (1.8-2.4); PHOSPHORUS LEVEL 2.5 MG/DL (2.5-4.9); POTASSIUM SERUM 3.9 MEQ/L (3.5-5.1); SODIUM LEVEL 144 MEQ/L (136-145)
[2019-08-29] MEDS: LORATADINE 10 MG TAB PO SCH (08:26)
[2019-08-29] MEDS: HEPARIN SOD (PORCINE) 5000 UNITS/ML VIAL SC SCH (08:27)
[2019-08-29] MEDS: ENALAPRIL MALEATE 10 MG TAB PO SCH (08:27)
[2019-08-29] MEDS: POTASSIUM CHLORIDE 10 MEQ SR TABLET PO SCH (08:27)
[2019-08-29 08:28] VITALS: BP 155/65
[2019-08-29] MEDS: ATENOLOL 50 MG TAB PO SCH (08:28)
[2019-08-29] MEDS: MEGESTROL 40 MG TAB PO SCH (08:28)
--- NOTE | 2019-08-29 09:29 | IPNPDOC ---
Subjective Review oF Systems Chief Complaint The patient is a 69-year-old female admitted with a reason for visit of Right Obstructive Ureteral Calculi. Events since Last Encounter No acute events o/n. Patient denies pain, noting that it completely went away after surgery yesterday. No n/v. No f/c/ns. Objective Physical Examination General Exam: Alert, Cooperative, No Acute Distress ABDOMEN EXAM: Soft; No: Tenderness Skin Exam: Nl turgor and temperature Neuro Exam: Normal Speech Psych Exam: Mental status NL, Mood NL Vital Signs/I&O Vital Signs Date Time Temp Pulse Resp B/P (MAP) Pulse Ox O2 Delivery O2 Flow Rate FiO2 08/29/19 08:28 75 155/65 08/29/19 06:34 98.4 20 97 Room Air 08/28/19 08:25 2 I&O- Last 24 Hours up to 6 AM 08/29/19 06:00 Intake Total 3410 ml Output Total 405 ml Balance 3005 ml Laboratory Data Labs 24H Laboratory Tests 2 08/29/19 06:35: Nucleated Red Blood Cells % (auto) 0.0, Anion Gap 6L, Glomerular Filtration Rate > 60.0, Calcium Level 9.4, Phosphorus Level 2.5, Magnesium Level 1.9 CBC/BMP Laboratory Tests 08/29/19 06:35 Microbiology Microbiology 08/27/19 Urine Culture - Final, Complete 08/27/19 Blood Culture - Preliminary, Resulted No growth after 24 hours . All specim... Assessment/Plan Date Seen The patient was seen on 08/29/19. Patient Summary This is a 69 y/o M POD1 s/p cysto, right ureteroscopy w/ basket extraction of stone, and right ureteral stent placement. She feels very good today and no longer has any flank pain. Her urine culture came back negative. Plan/VTE VTE Prophylaxis Ordered?: Yes VTE Exclusion Mechanical Proph: N/A:VTE Prophy Ordered Plan - ok for discharge home from urologic standpoint - my office will arrange f/u for stent removal in 3-4 wks JESSICA SANDOVAL MD Aug 29, 2019 09:29
[2019-08-29] MEDS ORDERED: LEVA1TAB2 PO (12:16)
--- NOTE | 2019-08-29 12:21 | DS.PDOC ---
Discharge Summary General Date of Admission Aug 27, 2019 at 11:14 Date of Discharge 08/29/2019 Attending Physician: RASHAAD BATES MD Discharge Summary PROCEDURES PERFORMED DURING STAY: None. ADMITTING DIAGNOSES: 1. UTI, obstructive uropathy, right hydronephrosis. DISCHARGE DIAGNOSES: 1. UTI, obstructive uropathy, severe right hydronephrosis. COMPLICATIONS/CHIEF COMPLAINT: Right Obstructive Ureteral Calculi. HISTORY OF PRESENT ILLNESS: 69-year-old female with past medical history of asthma, endometrial cancer with lung metastases, hypertension and renal calculi was admitted for severe right hydronephrosis due to obstructive uropathy, underwent lithotripsy and stent placement yesterday. Patient has remained stable throughout, tolerating diet, without any complaint at this time, he did note the episode for discharge with outpatient follow-up. However, urine cultures here, did not grow anything, likely due to antibiotics, received prior to coming here. Attempting to get culture results from [facility], will discharge patient on Levaquin for 5 more days. HOSPITAL COURSE: As above. DISCHARGE MEDICATIONS: Please see below. ALLERGIES: Please see below. PHYSICAL EXAMINATION: VITAL SIGNS: Please see below. GENERAL: No distress HEENT: Normocephalic, atraumatic, moist mucous membranes NECK: Supple CARDIOVASCULAR EXAMINATION: S1, S2, no murmurs RESPIRATORY EXAMINATION: Clear to auscultation, no wheezing ABDOMINAL EXAMINATION: Soft, no tenderness, nondistended, positive bowel sounds EXTREMITIES: Range of motion intact SKIN: No rash NEUROLOGICAL EXAMINATION: Alert and oriented 3, no focal deficits PSYCHIATRIC EXAMINATION: Calm and cooperative LABORATORY DATA: Please see below. IMAGING: CT abdomen and pelvis showing Severe right hydronephrosis due to a 3 mm stone in the right ureter PROGNOSIS: Good ACTIVITY: As tolerated. DIET: Cardiac DISCHARGE PLAN: Patient is follow-up with urology and PCP in 1-2 weeks DISPOSITION: Home. DISCHARGE INSTRUCTIONS: 1. As above. DISCHARGE CONDITION: Stable. TIME SPENT ON DISCHARGE: Greater than 36 minutes. Vital Signs/I&Os Vital Signs Date Time Temp Pulse Resp B/P (MAP) Pulse Ox O2 Delivery O2 Flow Rate FiO2 08/29/19 08:28 75 155/65 08/29/19 06:34 98.4 20 97 Room Air 08/28/19 08:25 2 I&O- Last 24 Hours up to 6 AM 08/29/19 05:59 Intake Total 3410 ml Output Total 605 ml Balance 2805 ml Laboratory Data Labs 24H Laboratory Tests 2 08/29/19 06:35: Nucleated Red Blood Cells % (auto) 0.0, Anion Gap 6L, Glomerular Filtration Rate > 60.0, Calcium Level 9.4, Phosphorus Level 2.5, Magnesium Level 1.9 CBC/BMP Laboratory Tests 08/29/19 06:35 Microbiology Microbiology 08/27/19 Urine Culture - Final, Complete 08/27/19 Blood Culture - Preliminary, Resulted No growth after 24 hours . All specim... Discharge Medications Scheduled 5-Hydroxytryptophan (5-Htp) (5-Htp) 100 Mg Capsule, 100 MG PO DAILY, (Reported) Atenolol (Atenolol) 50 Mg Tab, 50 MG PO BID, (Reported) Cranberry (Cranberry) 400 Mg Capsule, 400 MG PO DAILY, (Reported) Enalapril Maleate (Enalapril Maleate) 20 Mg Tab, 20 MG PO DAILY, (Reported) Exemestane (Aromasin) 25 Mg Tablet, 25 MG PO DAILY, (Reported) Fluticasone/Vilanterol (Breo Ellipta 200-25 Mcg INH) 1 Inh Inh, 1 PUFF INH VEGA Y, (Reported) Ketorolac Tromethamine (Ketorolac Tromethamine) 60 Mg/2 Ml Vial, 30 MG INJ ASDIRECTED, (Reported) RECEIVED AT [facility] Levofloxacin in Dextrose 5 % (Levofloxacin 750 mg/150 ml-D5w) 750 Mg/150 Ml Piggyback, 1 INJ IV ASDIRECTED, (Reported) RECEIVED AT [facility] Loratadine (Loratadine) 10 Mg Tab, 10 MG PO DAILY, (Reported) Megestrol Acetate (Megestrol Acetate) 40 Mg Tablet, 80 MG PO DAILY, (Reported) Potassium Chloride (Potassium Chloride) 8 Meq Capsule.er, 8 MEQ PO BID, (Reported) Scheduled PRN Albuterol Sulfate (Ventolin Hfa) 108 Mcg/Act Aer, 2 PUFFS INH QID PRN for SHORTNESS OF BREATH, (Reported) Allergies Coded Allergies: No Known Allergies (Verified , 03/17/18) RASHAAD BATES MD Aug 29, 2019 12:21
== END 2019-08-29 13:35 | disposition home or self-care (01) | DRG 670 ==
LOC: M MS5PR 11:14
PROVIDERS: ADMIT Internal Medicine; ATTEND Internal Medicine
PROC: 0TC68ZZ Extirpation of Matter from Right Ureter, Via Natural or Artificial Opening Endoscopic (ICD-10-PCS; principal; 2019-08-28 07:00)
DX: N13.2 Hydronephrosis with renal and ureteral calculous obstruction (principal); N39.0 Urinary tract infection, site not specified; Z79.899 Other long term (current) drug therapy; J45.909 Unspecified asthma, uncomplicated; I10 Essential (primary) hypertension; Z85.118 Personal history of other malignant neoplasm of bronchus and lung; Z85.42 Personal history of malignant neoplasm of other parts of uterus

== ENCOUNTER → 2019-10-05 | Outpatient (REF) | payer MEDICARE, OTHER ==
[~2019-10-05] MED LIST changes: +5-HT1CAP PO; +CRAN400C PO; +KETO60IN INJ; +LEVA1TAB2 PO; +LEVO1INJ27 IV; -TAMSULOSIN 0.4 MG CAP PO SCH
[2019-10-05 13:31] LABS: APPEARANCE, URINE HAZY (CLEAR); BACTERIA, URINE AUTO NEGATIVE (NEGATIVE); BILIRUBIN, URINE AUTO NEGATIVE (NEGATIVE); BLOOD, URINE BLOOD 2+ (NEGATIVE); CALCIUM OXALATE CRYSTALS LARGE; COLOR, URINE YELLOW (YELLOW); GLUCOSE, URINE (UA) AUTO NEGATIVE (NEGATIVE); KETONE, URINE AUTO NEGATIVE (NEGATIVE); LEUKOCYTE ESTERASE, URINE AUTO NEGATIVE (NEGATIVE); MUCUS, URINE SMALL (NEGATIVE); NITRITE, URINE AUTO NEGATIVE (NEGATIVE); PROTEIN, URINE AUTO 1+ mg/dL (NEGATIVE); RBC, URINE AUTO 3 /HPF (0-3); SPECIFIC GRAVITY URINE AUTO 1.024 (1.002-1.035); SQUAMOUS EPITHELIAL CELL UR AU 0 /HPF (0-6); UROBILINOGEN, URINE AUTO 0.2 mg/dL (0.0-2.0); WBC, URINE AUTO 0 /HPF (0-3)
== END ==
LOC: M SMT 13:10
PROVIDERS: ATTEND Nurse Practitioner Family
DX: N20.0 Calculus of kidney (principal)
CPT/HCPCS: 81001; 87086; G0463

== ENCOUNTER → 2020-02-17 | Outpatient (CLI) | payer MEDICARE, OTHER ==
--- NOTE | 2020-02-22 08:59 | SLEEPCENT ---
DATE OF PROCEDURE: 02/17/2020 ORDERED BY: APOLONIA Cherry Nocturnal polysomnography was performed for evaluation of sleep physiology in this patient with a history of snoring and nonrestorative sleep, who has comorbidities of hypertension and asthma. 7 hours and 32 minutes of data were reviewed. There were 394.5 minutes of sleep identified. Sleep latency was short at 4.5 minutes. Rapid eye movement (REM) latency was normal at 65 minutes. Sleep architecture was good with 4 REM cycles. Overall sleep efficiency was 88.9%. The patient's electrocardiogram showed a sinus rhythm with occasional PVCs, average heart rate 70 beats per minute. Electroencephalogram (EEG) showed fairly normal waveforms for awake and sleep. There were no focal events identified. There were only 15 respiratory events identified of 10 seconds in duration or greater for an apnea-hypopnea index of 2.3. The events were primarily obstructive not exclusive to sleep stage though more frequent in the REM stage not exclusive to body posture. Arousals from respiratory events occurred only 0.6 times per hour. Significant snoring was noted over the course of study. There was also significant limb activity but limb movement arousal index was only 2.9. There was only one oxygen desaturation below 90%. IMPRESSION: Normal nocturnal polysomnography with snoring.
== END ==
LOC: M SLEEP 20:00
PROVIDERS: ATTEND Nurse Practitioner Family
DX: R06.83 Snoring (principal)

== ENCOUNTER → 2020-04-16 | Outpatient (REF) | payer MEDICARE, OTHER ==
[~2020-04-16] MED LIST changes: +DIFL150T PO; -ENAL20TA PO; +ENAL20TA11 PO; +MACR100C43 PO; +PYRI1TAB5 PO
[2020-04-16 18:46] LABS: APPEARANCE, URINE HAZY (CLEAR); BACTERIA, URINE AUTO NEGATIVE (NEGATIVE); BILIRUBIN, URINE AUTO NEGATIVE (NEGATIVE); BLOOD, URINE BLOOD 1+ (NEGATIVE); CALCIUM OXALATE CRYSTALS MODERATE; COLOR, URINE YELLOW (YELLOW); GLUCOSE, URINE (UA) AUTO NEGATIVE (NEGATIVE); KETONE, URINE AUTO NEGATIVE (NEGATIVE); LEUKOCYTE ESTERASE, URINE AUTO NEGATIVE (NEGATIVE); MUCUS, URINE SMALL (NEGATIVE); NITRITE, URINE AUTO NEGATIVE (NEGATIVE); PROTEIN, URINE AUTO 1+ mg/dL (NEGATIVE); RBC, URINE AUTO 3 /HPF (0-3); SPECIFIC GRAVITY URINE AUTO 1.021 (1.002-1.035); SQUAMOUS EPITHELIAL CELL UR AU 1 /HPF (0-6); UROBILINOGEN, URINE AUTO 0.2 mg/dL (0.0-2.0); WBC, URINE AUTO 4 /HPF (0-3)
== END ==
LOC: M SMT 16:32
PROVIDERS: ATTEND Nurse Practitioner Family
DX: N39.0 Urinary tract infection, site not specified (principal)
CPT/HCPCS: 51798; 81001; 87086; G0463

== ENCOUNTER 2020-07-27 21:39 | Emergency (ER) | payer MEDICARE, OTHER ==
[~2020-07-27] VITALS: Ht 157.5 cm; Wt 88.1 kg
[~2020-07-27 21:39] MED LIST changes: -DIFL150T PO; -MACR100C43 PO; -PYRI1TAB5 PO
[2020-07-27 21:40] VITALS: BP 187/85
[2020-07-27] MEDS ORDERED: MACR100C43 PO (22:22)
[2020-07-27] MEDS ORDERED: PYRI1TAB5 PO (22:22)
[2020-07-27] MEDS ORDERED: PHENAZOPYRIDINE 100 MG TAB PO ONE (22:30)
[2020-07-27] MEDS ORDERED: NITROFURANTOIN (MACROBID) 100 MG CAP PO ONE (22:30)
[2020-07-27] MEDS ORDERED: DIFL150T PO (22:31)
== END 2020-07-27 22:36 | disposition home or self-care (01) ==
LOC: M ED 21:39
DX: N30.00 Acute cystitis without hematuria (principal); I11.9 Hypertensive heart disease without heart failure; Z79.899 Other long term (current) drug therapy

== ENCOUNTER → 2021-02-25 | Outpatient (REF) | payer MEDICARE, OTHER ==
[~2021-02-25] MED LIST changes: +DIFL150T PO; +HYDR-3490 PO; -HYDR25TAB PO; +MACR100C43 PO; +PYRI1TAB5 PO
[2021-02-25 18:02] LABS: APPEARANCE, URINE CLOUDY (CLEAR); BACTERIA, URINE AUTO 2+ (NEGATIVE); BILIRUBIN, URINE AUTO NEGATIVE (NEGATIVE); BLOOD, URINE BLOOD 2+ (NEGATIVE); COLOR, URINE YELLOW (YELLOW); GLUCOSE, URINE (UA) AUTO NEGATIVE (NEGATIVE); KETONE, URINE AUTO NEGATIVE (NEGATIVE); LEUKOCYTE ESTERASE, URINE AUTO 3+ (NEGATIVE); MUCUS, URINE SMALL (NEGATIVE); NITRITE, URINE AUTO POSITIVE (NEGATIVE); PROTEIN, URINE AUTO NEGATIVE (NEGATIVE); RBC, URINE AUTO 12 /HPF (0-3); SPECIFIC GRAVITY URINE AUTO 1.012 (1.002-1.035); SQUAMOUS EPITHELIAL CELL UR AU 0 /HPF (0-6); UROBILINOGEN, URINE AUTO 0.2 mg/dL (0.0-2.0); WBC, URINE AUTO TNTC /HPF (0-3)
== END ==
LOC: M SMT 16:50
PROVIDERS: ATTEND Nurse Practitioner Family
DX: N39.0 Urinary tract infection, site not specified (principal)
CPT/HCPCS: 81001; 87088; 87186; G0463

== ENCOUNTER → 2021-04-08 | Outpatient (REF) | payer MEDICARE, OTHER ==
[2021-04-08 18:44] LABS: APPEARANCE, URINE CLEAR (CLEAR); BACTERIA, URINE AUTO 1+ (NEGATIVE); BILIRUBIN, URINE AUTO NEGATIVE (NEGATIVE); BLOOD, URINE BLOOD 1+ (NEGATIVE); COLOR, URINE YELLOW (YELLOW); GLUCOSE, URINE (UA) AUTO NEGATIVE (NEGATIVE); KETONE, URINE AUTO NEGATIVE (NEGATIVE); LEUKOCYTE ESTERASE, URINE AUTO NEGATIVE (NEGATIVE); NITRITE, URINE AUTO NEGATIVE (NEGATIVE); PROTEIN, URINE AUTO NEGATIVE (NEGATIVE); RBC, URINE AUTO 1 /HPF (0-3); SPECIFIC GRAVITY URINE AUTO 1.013 (1.002-1.035); SQUAMOUS EPITHELIAL CELL UR AU 0 /HPF (0-6); UROBILINOGEN, URINE AUTO 0.2 mg/dL (0.0-2.0); WBC, URINE AUTO 0 /HPF (0-3)
== END ==
LOC: M SMT 17:20
PROVIDERS: ATTEND Nurse Practitioner Family
DX: N39.0 Urinary tract infection, site not specified (principal)
CPT/HCPCS: 81001; 87086; G0463

== ENCOUNTER → 2021-11-27 | Outpatient (CLI) | payer MEDICARE, OTHER ==
[~2021-11-27] MED LIST changes: +PROHANCE 279.3MG/ML 15ML VIAL As Ordered ONE; +PROHANCE 279.3MG/ML 5ML VIAL As Ordered ONE
== END ==
LOC: M RAD 15:31
PROVIDERS: ATTEND Physician Assistant
DX: D42.9 Neoplasm of uncertain behavior of meninges, unspecified (principal)
CPT/HCPCS: 70553; A9576

== ENCOUNTER → 2022-01-06 | Outpatient (REF) | payer MEDICARE, OTHER ==
[~2022-01-06] MED LIST changes: -PROHANCE 279.3MG/ML 15ML VIAL As Ordered ONE; -PROHANCE 279.3MG/ML 5ML VIAL As Ordered ONE
[2022-01-06 17:25] LABS: APPEARANCE, URINE CLEAR (CLEAR); BACTERIA, URINE AUTO NEGATIVE (NEGATIVE); BILIRUBIN, URINE AUTO NEGATIVE (NEGATIVE); BLOOD, URINE BLOOD 1+ (NEGATIVE); COLOR, URINE STRAW (YELLOW); GLUCOSE, URINE (UA) AUTO NEGATIVE (NEGATIVE); KETONE, URINE AUTO NEGATIVE (NEGATIVE); LEUKOCYTE ESTERASE, URINE AUTO NEGATIVE (NEGATIVE); NITRITE, URINE AUTO NEGATIVE (NEGATIVE); PROTEIN, URINE AUTO NEGATIVE (NEGATIVE); RBC, URINE AUTO 1 /HPF (0-3); SPECIFIC GRAVITY URINE AUTO 1.006 (1.002-1.035); SQUAMOUS EPITHELIAL CELL UR AU 0 /HPF (0-6); UROBILINOGEN, URINE AUTO 0.2 mg/dL (0.0-2.0); WBC, URINE AUTO 1 /HPF (0-3)
== END ==
LOC: M SMT 16:59
PROVIDERS: ATTEND Urology
DX: Z87.440 Personal history of urinary (tract) infections (principal); Z79.899 Other long term (current) drug therapy

== ENCOUNTER → 2024-06-14 | Outpatient (REF) | payer MEDICARE, OTHER ==
[~2024-06-14] MED LIST changes: -CRAN400C PO; +CRANBERRY400 MG PO; +ENAL1TAB52 PO; -ENAL20TA11 PO; -MEGE40TA PO; +MEGE40TA3 PO; +POTA-298 PO; -POTA1TAB14 PO
[2024-06-14 18:39] LABS: APPEARANCE, URINE CLEAR (CLEAR); BACTERIA, URINE AUTO NEGATIVE (NEGATIVE); BILIRUBIN, URINE AUTO NEGATIVE (NEGATIVE); BLOOD, URINE BLOOD 1+ (NEGATIVE); COLOR, URINE YELLOW (YELLOW); GLUCOSE, URINE (UA) AUTO NEGATIVE (NEGATIVE); KETONE, URINE AUTO NEGATIVE (NEGATIVE); LEUKOCYTE ESTERASE, URINE AUTO NEGATIVE (NEGATIVE); MUCUS, URINE SMALL (NEGATIVE); NITRITE, URINE AUTO NEGATIVE (NEGATIVE); PROTEIN, URINE AUTO NEGATIVE (NEGATIVE); RBC, URINE AUTO 1 /HPF (0-3); SPECIFIC GRAVITY URINE AUTO 1.013 (1.002-1.035); SQUAMOUS EPITHELIAL CELL UR AU 1 /HPF (0-6); TRANSITIONAL EPITHELIAL AUTO 1 /HPF; UROBILINOGEN, URINE AUTO 0.2 mg/dL (0.0-2.0); WBC, URINE AUTO 3 /HPF (0-3)
== END ==
LOC: M SMT 17:22
PROVIDERS: ATTEND Urology
DX: Z87.440 Personal history of urinary (tract) infections (principal); Z79.899 Other long term (current) drug therapy

== ENCOUNTER → 2024-09-12 | Outpatient (REF) | payer MEDICARE, OTHER ==
[2024-09-12 17:52] LABS: APPEARANCE, URINE CLEAR (CLEAR); BACTERIA, URINE AUTO NEGATIVE (NEGATIVE); BILIRUBIN, URINE AUTO NEGATIVE (NEGATIVE); BLOOD, URINE BLOOD 2+ (NEGATIVE); COLOR, URINE YELLOW (YELLOW); GLUCOSE, URINE (UA) AUTO NEGATIVE (NEGATIVE); KETONE, URINE AUTO NEGATIVE (NEGATIVE); LEUKOCYTE ESTERASE, URINE AUTO NEGATIVE (NEGATIVE); MUCUS, URINE SMALL (NEGATIVE); NITRITE, URINE AUTO NEGATIVE (NEGATIVE); PROTEIN, URINE AUTO NEGATIVE (NEGATIVE); RBC, URINE AUTO 2 /HPF (0-3); SPECIFIC GRAVITY URINE AUTO 1.019 (1.002-1.035); SQUAMOUS EPITHELIAL CELL UR AU 0 /HPF (0-6); TRANSITIONAL EPITHELIAL AUTO <1 /HPF; UROBILINOGEN, URINE AUTO 0.2 mg/dL (0.0-2.0); WBC, URINE AUTO 3 /HPF (0-3)
== END ==
LOC: M SMT 16:58
PROVIDERS: ATTEND Urology
DX: Z87.440 Personal history of urinary (tract) infections (principal); Z79.899 Other long term (current) drug therapy